=== PATIENT | male | born 1955 | race Caucasian/White ===

== ENCOUNTER → 2018-01-04 | Outpatient (CLI) | payer BC | END | disposition home or self-care (01) | LOC: C.LAB 17:40 | PROVIDERS: ATTEND Nurse Practitioner Adult Health | DX: R30.0 Dysuria (principal); R35.0 Frequency of micturition ==

== ENCOUNTER → 2018-01-16 | Outpatient (CLI) | payer BC ==
--- NOTE | 2018-01-16 17:29 | DIAGNOSTIC IMAGING REPORT ---
KUB CLINICAL HISTORY: R30.0 Dysuria COMPARISON STUDY: No previous studies for comparison. FINDINGS: There is no pathologic bowel dilatation. Left upper quadrant calcifications are felt to be related to the splenic artery. No renal calculi are visualized. There is a nonspecific 1 cm calcification within the right pelvic basin. IMPRESSION: 1. No evidence of pathologic bowel dilatation 2. Nonspecific 1 cm calcification within the right pelvic basin. Electronically signed by: Craig Carrasco M.D. 01/16/2018 5:28 PM Dictated Date/Time: 01/16/2018 5:27 PM
== END | disposition home or self-care (01) ==
LOC: C.RAD 17:04
PROVIDERS: ATTEND Urology
DX: R30.0 Dysuria (principal); N40.1 Benign prostatic hyperplasia with lower urinary tract symptoms; R35.0 Frequency of micturition